=== PATIENT | female | born 1930 | race Caucasian/White ===

== ENCOUNTER 2017-05-15 18:44 | Emergency (ER) | payer MEDICARE, OTHER ==
--- NOTE | 2017-05-15 19:48 | RAD ---
THREE VIEWS LEFT SHOULDER 05/15/17 HISTORY: Left shoulder contusion. FINDINGS: There is a nondisplaced fracture involving the distal left clavicle. There are fractures involving th e lateral left upper ribs of uncertain age but may be more recent in origin. No additional fracture i s seen. There is no dislocation. Diffuse osteopenia is present. IMPRESSION: 1. Nondisplaced fracture distal one third left clavicle. 2. Lateral left upper rib fractures of indeterminate age but may be more recent in origin. These fractures appear to involve the lateral left second, third, and fourth ribs. 3. Osteopenia. POS: [facility]
[2017-05-15] MEDS ORDERED: Acetaminophen 500 MG TAB ONE (20:34)
== END 2017-05-15 20:40 | disposition home or self-care (01) ==
LOC: MADERS 18:44
DX: S42.035A Nondisplaced fracture of lateral end of left clavicle, initial encounter for closed fracture (principal); S22.42XA Multiple fractures of ribs, left side, initial encounter for closed fracture; I10 Essential (primary) hypertension; W17.89XA Other fall from one level to another, initial encounter

== ENCOUNTER 2020-04-16 11:15 | Inpatient (IN) | payer MEDICARE, OTHER ==
[2020-04-16] MEDS ORDERED: Ondansetron ODT 4 MG TAB PO PRN (12:23)
[2020-04-16] MEDS ORDERED: Acetaminophen 325 MG TAB PO PRN (12:23)
[2020-04-16] MEDS ORDERED: Senokot S 8.6-50 MG TAB PO PRN (12:23)
[2020-04-16 12:52] VITALS: BMI 19.1
[2020-04-16 12:59] LABS: #Basophils 0.1 thou/uL (0.0-0.2); #Lymphocytes 0.9 thou/uL (1.20-3.40); #Monocytes 0.8 thou/uL (0.11-0.59); #Neutrophils 9.7 thou/uL (1.40-6.50); %Basophils 0.5 % (0.0-1.0); %Lymphocytes 7.4 % (21.0-51.0); %Monocytes 7.2 % (0.0-10.0); %Neutrophils 84.8 % (42.0-75.0); Hemoglobin 14.3 g/dL (12.0-16.0); Mean Corpuscular HGB CONC 32.7 g/dL (32.0-36.0); Mean Corpuscular Hemoglobin 28.7 pg (27.0-31.0); Mean Corpuscular Volume 87.9 fL (78.0-98.0); Mean Platelet Volume 8.5 fL (7.4-10.4); Platelet Count 184 thou/uL (130-400); Red Blood Cell (RBC) Count 4.97 mill/uL (4.20-5.40); White Blood Cell (WBC) Count 11.4 thou/uL (4.8-10.8)
[2020-04-16 13:16] LABS: ALT (SGPT) 14 U/L (8-55); AST (SGOT) 39 U/L (5-34); Alkaline Phosphatase 109 U/L (40-110); Anion Gap 22 mmol/L (10-20); BUN (Urea Nitrogen) 29 mg/dL (9.8-20.1); Bilirubin, Total 0.8 mg/dL (0.2-1.2); CK (CPK) 1007 U/L (29-168); Calc. Creatinine Clearance 19 mL/min (70-130); Carbon Dioxide 20 mmol/L (23-31); Chloride 101 mmol/L (98-107); Globulin 3.2 g/dL (2.4-3.5); Glucose 115 mg/dL (83-110); Potassium 3.6 mmol/L (3.5-5.1); Protein, Total 7.2 g/dL (6.0-8.3); Sodium 139 mmol/L (136-145)
--- NOTE | 2020-04-16 14:46 | CT ---
CT BRAIN WITHOUT CONTRAST: HISTORY:Altered mental status and fall COMPARISON:None FINDINGS: There are foci of decreased attenuation in the periventricular white matter, consistent with chronic small vessel ischemic disease. No evidence of acute infarct, hemorrhage, midline shift or abnormal extra-axial fluid collections is seen. The ventricular size is appropriate and the basilar cisterns are patent. The bony calvarium is intact. The visualized paranasal sinuses and mastoid air cells are well aerated. IMPRESSION: No CT evidence of acute intracranial process.
--- NOTE | 2020-04-16 14:48 | RAD ---
XR Chest Pa Lat STANDARD HISTORY: Fall, altered mental status COMPARISON: None FINDINGS: The heart size is normal. The right hemidiaphragm is elevated. The lungs are well expanded without focal areas of consolidation, pneumothorax or pleural effusions. There is suggestion of a small hiatal hernia.. IMPRESSION: No radiographic evidence of acute cardiopulmonary process.
[2020-04-16 15:08] LABS: Bilirubin Moderate (Negative); Blood, Urine Moderate (Negative); Clarity Slightly Cloudy (Clear); Glucose, Urine (Dipstick) Negative (Negative); Ketone, Urine 40 mg/dL (Negative); Leukocyte Negative (Negative); Nitrite Negative (Negative); Protein, Urine (Dipstick) 30 mg/dL (Neg-Trace); Urobilinogen 0.2 mg/dL (Less than 2)
[2020-04-16 15:15] LABS: Bacteria/HPF Rare-Few HPF (None Seen); Squamous Epithelial 0-3 HPF (0-3); WBC/HPF 0-3 HPF (0-3)
[2020-04-16] MEDS: Dextrose 5 %-0.45 % NaCl 1,000 ML IV SCH (16:14)
--- NOTE | 2020-04-16 18:10 | RAD ---
Exam: XR Shoulder Rt 3 View STANDARD HISTORY: Right shoulder pain after a fall. COMPARISON: None FINDINGS: There is osteopenia. 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 No obvious fracture is see n, and there is no evidence of a dislocation. Calcified granuloma is seen in the right upper lobe. IMPRESSION: 1. Osteopenia. 2. Right acromioclavicular joint osteoarthritis. 3. No acute osseous abnormality
--- NOTE | 2020-04-16 18:13 | RAD ---
Exam: XR Shoulder Lt 3 View STANDARD HISTORY: Fall prior to admission. Patient plans of left shoulder pain. Patient unable to tolerate a scapular Y view due to the pain. COMPARISON: None FINDINGS: There is a comminuted fracture involving the proximal left humeral diaphysis and neck of the humerus with mild displacement of the distal fracture fragment by 1.5 cm and mild overriding of the fracture fragments. There is diffuse osteopenia. There are nondisplaced fractures involving lateral t hird, fourth, and fifth ribs, but the exact ages are indeterminate and may be more remote in origin. Correlation for point tenderness is recommended. Diffuse osteopenia is present. Scapular Y view is not obtained due to difficulty in positioning which limits evaluation the glenohumeral relationship, but no obvious dislocation is appreciated on the internally and externally rotated views. IMPRESSION: 1. Comminuted fracture proximal left humerus with mild displacement and overriding of fracture fragme nts. 2. Diffuse osteopenia. 3. Lateral left-sided rib fractures of which the exact ages are indeterminate and may be more remote in origin. However, correlation for point tenderness is recommended.
[2020-04-16] MEDS: HYDROcodone/Acetaminophen 5/325 mg Tablet PO PRN (22:24)
[2020-04-16] MEDS: Famotidine 20 MG TAB PO SCH (22:24)
[2020-04-17 02:10] LABS: SARS-CoV-2 MS2 Positive; SARS-CoV-2 N Gene Negative; SARS-CoV-2 S Gene Negative; SARS-CoV-2 by NAA Not Detected (NotDetected); SARS-CoV-2 orf1ab Negative
--- NOTE | 2020-04-17 02:15 | HP ---
ADMITTING AND PRIMARY CARE PHYSICIAN: Sara Neff MD CHIEF COMPLAINT: Altered mental status, fall, and right facial rash. HISTORY OF PRESENT ILLNESS: Patient is an 89-year-old female with a past medical history of hypertension, who has not been to me or any other doctor since 2018. The patient was brought into my office by her niece who states they found her the floor in her home this morning after she did not warehouse order picker their calls. Per niece, the patient was confused when she was found and does not know long she was on the floor. Niece also states the patient lives by herself and the family calls and checks up on her routinely. The patient's POA Ms. Kp Pearson had noted that the patient about a week ago, had a rash appeared on the right side of patient's face and an appointment was made for this as it continued to worsen. The patient had pain and the rash now crusting up. Per niece, the patient's cousin spoke to her this morning and she was fine, but about 2 hours later, they were unable to get hold of the patient, so they visited her home and found on the floor. The patient denies any pain to any of her extremities, but they noted that she has been very weak and niece also states the patient had been falling more often recently. The patient unable to answer majority of my questions. She was very weak and unable to stand up for a full exam. The decision was made to admit the patient to the inpatient service for full examination for altered mental status and also recurrent falls. PAST MEDICAL HISTORY: Hypertension. PAST SURGICAL HISTORY: Hysterectomy. ALLERGIES: NO KNOWN DRUG ALLERGIES. CODE STATUS: The patient is a DNR. FAMILY HISTORY: Patient's father and mother . Both parents had medical history of hypertension. MEDICATIONS: Hydrochlorothiazide 50 mg daily unsure if she is taking med. SOCIAL HISTORY: The patient lives by herself in her home. She was never and never had any children. She has no history of alcohol, tobacco, or illicit drug use. REVIEW OF SYSTEMS: CONSTITUTIONAL: Patient is very weak. Patient denies any fever or chills. HEENT: Denies and ear pain, nasal drainage. Complains of right facial pain and tearing to right eye. CARDIOVASCULAR: Patient denies any chest pain, palpitation, or chest pressure. RESPIRATORY: Patient denies any cough, wheezing, or shortness of breath. GASTROINTESTINAL: Patient denies any constipation, abdominal pain, nausea, or vomiting. GENITOURINARY: Denies any urinary incontinence, frequency, or urgency. MUSCULOSKELETAL: Denies any pain to her joints. SKIN: Patient complains of rash today right side of her face and pain. MUSCULOSKELETAL: Denies any joint pain or lower back pain. NEUROLOGICAL: Patient complains of weakness. She complains of some confusion recently and occasional falling. PHYSICAL EXAMINATION: VITAL SIGNS: Temperature 98.6, pulse 103, respirations 20, O2 saturation on room air 99%, blood pressure 172/96. GENERAL: The patient is alert, awake, and oriented x1, sitting up in bedside chair, in no apparent distress. HEENT: Normocephalic, atraumatic. Extraocular muscles intact. Trachea midline. PERRL, right conjunctiva erythema noted. NECK: Supple. No JVD. No lymphadenopathy. CARDIOVASCULAR: S1 and S2. No murmurs, no gallops. RESPIRATORY: No cough, no wheezing. Good air entry. ABDOMEN: Positive bowel sounds. Nontender, nondistended. SKIN: Patient does have significant erythema to the right side of her face and cheek. The patient does have some dark crusting to the right side of her face. MUSCULOSKELETAL: Patient does have weakness to upper and lower extremities. EXTREMITIES: Does not have any edema or erythema to calf. NEUROLOGICAL: Patient has weakness to upper and lower extremities. The patient is also leaning to her right side in a wheelchair. PSYCHIATRY: The patient does have some confusion, but she is able to be directed. She denies any hallucinations. ASSESSMENT: 1. Fall. 2. Gait instability. 3. Altered mental status. 4. Dehydration. PLAN: The patient is an 89-year-old female, who is currently being admitted to the inpatient service for recurrent fall, altered mental status, dehydration, and gait instability. We will get stat CBC, CMP, chest x-ray, EKG, CT scan of the brain. We will get stat urinalysis and urine cultures. We will consult Physical Therapy, Occupational Therapy to help with the gait, balance, strengthening, and also to help with activities of daily living prior to discharge. We will resume home medications. We will place the patient on DAVIS hose for DVT prophylaxis and Pepcid for GI prophylaxis. We will monitor the patient closely for any dynamic instability or electrolyte abnormalities and adjust accordingly. We will encourage and assist with adequate oral intake. We will start the patient on D5 half NS at 100 mL/h. We will place a bed alarm in the patient's room. We will place patient on fall precautions. ESTIMATED LENGTH OF STAY: 3 to 4 days. DISPOSITION: Possibly back to her home with family to an assisted living facility. Estimated length of time used to prepare this H and P was greater than 45 minutes. Job ID: [id number] [facility]
[2020-04-17] MEDS: Dextrose 5 %-0.45 % NaCl 1,000 ML IV SCH ×3 (02:36→22:04)
[2020-04-17] MEDS ORDERED: Hydrochlorothiazide 25 MG TAB PO SCH (09:00)
[2020-04-17] MEDS: Famotidine 20 MG TAB PO SCH ×2 (09:43→21:33)
[2020-04-17] MEDS: HYDROcodone/Acetaminophen 5/325 mg Tablet PO PRN ×4 (09:43→21:33)
[2020-04-18] MEDS: HYDROcodone/Acetaminophen 5/325 mg Tablet PO PRN ×4 (01:01→20:32)
[2020-04-18] MEDS: Famotidine 20 MG TAB PO SCH ×2 (09:01→20:30)
[2020-04-18] MEDS: Dextrose 5 %-0.45 % NaCl 1,000 ML IV SCH ×2 (09:02→15:02)
[2020-04-18] MEDS ORDERED: Neomycin-Polymyxin-Hc 7.5 ML BOT ONE (20:08)
[2020-04-18] MEDS: Gabapentin 100 MG CAP PO SCH (20:31)
[2020-04-18] MEDS: Neomycin-Polymyxin-Hc 7.5 ML BOT R EYE SCH (20:31)
[2020-04-19] MEDS: HYDROcodone/Acetaminophen 5/325 mg Tablet PO PRN ×4 (00:07→14:03)
[2020-04-19] MEDS: Neomycin-Polymyxin-Hc 7.5 ML BOT R EYE SCH ×4 (00:08→13:13)
[2020-04-19] MEDS: Dextrose 5 %-0.45 % NaCl 1,000 ML IV SCH ×2 (03:23→13:19)
[2020-04-19 08:44] VITALS: TEMP 97.7
[2020-04-19] MEDS ORDERED: Hydrochlorothiazide 25 MG TAB PO SCH (09:00)
[2020-04-19] MEDS: Gabapentin 100 MG CAP PO SCH (09:09)
[2020-04-19] MEDS: Famotidine 20 MG TAB PO SCH (09:09)
[2020-04-19 12:21] VITALS: BP 109/70
[2020-04-19 12:50] LABS: #Basophils 0.1 thou/uL (0.0-0.2); #Eosinphils 0.2 thou/uL (0.0-0.7); #Lymphocytes 1.4 thou/uL (1.20-3.40); #Monocytes 0.7 thou/uL (0.11-0.59); #Neutrophils 5.1 thou/uL (1.40-6.50); %Basophils 0.9 % (0.0-1.0); %Eosinophils 2.3 % (0.0-10.0); %Monocytes 9.8 % (0.0-10.0); %Neutrophils 68.1 % (42.0-75.0); Hemoglobin 10.1 g/dL (12.0-16.0); Mean Corpuscular HGB CONC 33.6 g/dL (32.0-36.0); Mean Corpuscular Hemoglobin 29.6 pg (27.0-31.0); Mean Corpuscular Volume 88.1 fL (78.0-98.0); Mean Platelet Volume 8.3 fL (7.4-10.4); Platelet Count 174 thou/uL (130-400); RBC Distribution Width 12.6 % (11.5-14.5); Red Blood Cell (RBC) Count 3.42 mill/uL (4.20-5.40); White Blood Cell (WBC) Count 7.4 thou/uL (4.8-10.8)
[2020-04-19 13:05] LABS: Anion Gap 12 mmol/L (10-20); BUN (Urea Nitrogen) 9 mg/dL (9.8-20.1); CK (CPK) 241 U/L (29-168); Calc. Creatinine Clearance 31 mL/min (70-130); Calcium 7.6 mg/dL (7.8-10.44); Carbon Dioxide 21 mmol/L (23-31); Chloride 103 mmol/L (98-107); Glucose 119 mg/dL (83-110); Potassium 3.2 mmol/L (3.5-5.1); Sodium 133 mmol/L (136-145)
== END 2020-04-19 15:12 | disposition swing bed (61) | DRG 184 ==
LOC: MADMS 11:15
PROVIDERS: ADMIT Family Medicine; ATTEND Family Medicine
DX: S22.42XA Multiple fractures of ribs, left side, initial encounter for closed fracture (principal); S42.202A Unspecified fracture of upper end of left humerus, initial encounter for closed fracture; M62.82 Rhabdomyolysis; R26.89 Other abnormalities of gait and mobility; R41.82 Altered mental status, unspecified; R29.6 Repeated falls; I10 Essential (primary) hypertension; Z66 Do not resuscitate; E86.0 Dehydration; Z90.710 Acquired absence of both cervix and uterus; Z79.899 Other long term (current) drug therapy; Z20.828 Contact with and (suspected) exposure to other viral communicable diseases; B02.9 Zoster without complications
CPT/HCPCS: 36415; 70450; 71046; 80048; 80053; 81001; 82550; 83735; 84443; 85025; 87635; J7042; U0003

== ENCOUNTER 2020-04-19 15:13 | Inpatient (IN) | payer MEDICARE, OTHER ==
[2020-04-19] MEDS ORDERED: Ondansetron ODT 4 MG TAB PO PRN (16:54)
[2020-04-19] MEDS ORDERED: HYDROcodone/Acetaminophen 5/325 mg Tablet PO PRN ×2 (16:54→16:57)
[2020-04-19] MEDS ORDERED: Acetaminophen 325 MG TAB PO PRN (16:54)
[2020-04-19] MEDS ORDERED: Senokot S 8.6-50 MG TAB PO PRN (16:57)
[2020-04-19] MEDS ORDERED: HYDROcodone/Acetaminophen 7.5/325 mg Tablet PO PRN (17:02)
[2020-04-19] MEDS: Neomycin-Polymyxin-Hc 7.5 ML BOT R EYE SCH ×2 (17:57→20:38)
[2020-04-19] MEDS: Gabapentin 100 MG CAP PO SCH (20:28)
[2020-04-19] MEDS: Famotidine 20 MG TAB PO SCH (20:28)
[2020-04-19] MEDS: HYDROcodone/Acetaminophen 5/325 mg Tablet PO PRN (20:29)
[2020-04-19] MEDS ORDERED: Famotidine 20 MG TAB PO SCH (21:00)
[2020-04-20] MEDS: Neomycin-Polymyxin-Hc 7.5 ML BOT R EYE SCH ×6 (02:00→21:00)
[2020-04-20] MEDS ORDERED: FLU VACC QS2020-21(65YR UP)/PF 240 MCG/0.7 ML SYRINGE IM ONE (09:00)
[2020-04-20] MEDS: Acetaminophen 325 MG TAB PO PRN (09:05)
[2020-04-20] MEDS: Gabapentin 100 MG CAP PO SCH ×2 (09:06→20:32)
[2020-04-20] MEDS: Hydrochlorothiazide 25 MG TAB PO SCH (09:06)
[2020-04-20] MEDS: Famotidine 20 MG TAB PO SCH ×2 (09:07→20:32)
[2020-04-20] MEDS: HYDROcodone/Acetaminophen 5/325 mg Tablet PO PRN ×2 (14:25→20:33)
[2020-04-21] MEDS: Neomycin-Polymyxin-Hc 7.5 ML BOT R EYE SCH ×6 (00:03→20:03)
[2020-04-21] MEDS: Acetaminophen 325 MG TAB PO PRN (02:20)
[2020-04-21] MEDS: Famotidine 20 MG TAB PO SCH ×2 (09:10→20:02)
[2020-04-21] MEDS: Gabapentin 100 MG CAP PO SCH ×2 (09:10→20:02)
[2020-04-21] MEDS: Hydrochlorothiazide 25 MG TAB PO SCH (09:12)
[2020-04-21] MEDS: HYDROcodone/Acetaminophen 5/325 mg Tablet PO PRN ×2 (09:12→20:03)
[2020-04-22] MEDS: Neomycin-Polymyxin-Hc 7.5 ML BOT R EYE SCH ×6 (01:15→20:16)
[2020-04-22] MEDS: Acetaminophen 325 MG TAB PO PRN (01:38)
[2020-04-22] MEDS: Hydrochlorothiazide 25 MG TAB PO SCH (08:01)
[2020-04-22] MEDS: Famotidine 20 MG TAB PO SCH ×2 (08:01→20:15)
[2020-04-22] MEDS: Gabapentin 100 MG CAP PO SCH ×2 (08:01→20:15)
[2020-04-22] MEDS: HYDROcodone/Acetaminophen 5/325 mg Tablet PO PRN ×2 (10:17→16:34)
[2020-04-22] MEDS ORDERED: Lidocaine 4% Cream 5 GM TUBE w/ Tegaderm ONE (19:38)
[2020-04-22] MEDS: Lidocaine 4% Cream 5 GM TUBE w/ Tegaderm TOP SCH (20:16)
[2020-04-23] MEDS: Neomycin-Polymyxin-Hc 7.5 ML BOT R EYE SCH ×6 (00:06→20:14)
[2020-04-23] MEDS: HYDROcodone/Acetaminophen 5/325 mg Tablet PO PRN ×2 (02:06→18:00)
[2020-04-23] MEDS: Hydrochlorothiazide 25 MG TAB PO SCH (08:39)
[2020-04-23] MEDS: Gabapentin 100 MG CAP PO SCH ×2 (08:39→20:12)
[2020-04-23] MEDS: Famotidine 20 MG TAB PO SCH ×2 (08:39→20:11)
[2020-04-23] MEDS: Lidocaine 4% Cream 5 GM TUBE w/ Tegaderm TOP SCH ×2 (08:40→20:12)
[2020-04-24] MEDS: HYDROcodone/Acetaminophen 5/325 mg Tablet PO PRN ×3 (00:16→20:14)
[2020-04-24] MEDS: Neomycin-Polymyxin-Hc 7.5 ML BOT R EYE SCH ×6 (00:16→20:15)
[2020-04-24] MEDS: Hydrochlorothiazide 25 MG TAB PO SCH (08:48)
[2020-04-24] MEDS: Famotidine 20 MG TAB PO SCH ×2 (08:48→20:13)
[2020-04-24] MEDS: Gabapentin 100 MG CAP PO SCH ×2 (08:49→20:13)
[2020-04-24] MEDS: Lidocaine 4% Cream 5 GM TUBE w/ Tegaderm TOP SCH ×2 (08:50→20:20)
[2020-04-24] MEDS: Acetaminophen 325 MG TAB PO PRN (17:06)
[2020-04-24] MEDS: Donepezil HCl 10 MG TAB PO SCH (20:13)
[2020-04-25] MEDS: Neomycin-Polymyxin-Hc 7.5 ML BOT R EYE SCH ×7 (01:10→20:14)
[2020-04-25] MEDS: Acetaminophen 325 MG TAB PO PRN (04:00)
[2020-04-25] MEDS: Hydrochlorothiazide 25 MG TAB PO SCH (09:05)
[2020-04-25] MEDS: HYDROcodone/Acetaminophen 5/325 mg Tablet PO PRN ×3 (09:05→20:12)
[2020-04-25] MEDS: Famotidine 20 MG TAB PO SCH ×2 (09:05→20:11)
[2020-04-25] MEDS: Gabapentin 100 MG CAP PO SCH ×2 (09:06→20:13)
[2020-04-25] MEDS: Lidocaine 4% Cream 5 GM TUBE w/ Tegaderm TOP SCH ×2 (09:07→20:14)
[2020-04-25] MEDS: Donepezil HCl 10 MG TAB PO SCH (20:11)
[2020-04-26] MEDS: Neomycin-Polymyxin-Hc 7.5 ML BOT R EYE SCH ×6 (00:11→20:15)
[2020-04-26] MEDS: Acetaminophen 325 MG TAB PO PRN ×2 (00:25→05:20)
[2020-04-26] MEDS: Famotidine 20 MG TAB PO SCH (08:08)
[2020-04-26] MEDS: Gabapentin 100 MG CAP PO SCH ×2 (08:08→20:14)
[2020-04-26] MEDS: Hydrochlorothiazide 25 MG TAB PO SCH (08:08)
[2020-04-26] MEDS: Lidocaine 4% Cream 5 GM TUBE w/ Tegaderm TOP SCH ×2 (08:11→20:15)
[2020-04-26] MEDS: HYDROcodone/Acetaminophen 5/325 mg Tablet PO PRN ×3 (08:15→21:50)
[2020-04-26] MEDS: Ondansetron ODT 4 MG TAB PO PRN (09:27)
[2020-04-26] MEDS: Donepezil HCl 10 MG TAB PO SCH (20:14)
[2020-04-27] MEDS: Neomycin-Polymyxin-Hc 7.5 ML BOT R EYE SCH ×6 (00:17→20:59)
[2020-04-27] MEDS: HYDROcodone/Acetaminophen 5/325 mg Tablet PO PRN ×2 (06:11→12:21)
[2020-04-27] MEDS: Gabapentin 100 MG CAP PO SCH ×2 (08:02→20:58)
[2020-04-27] MEDS: Famotidine 20 MG TAB PO SCH (08:02)
[2020-04-27] MEDS: Acetaminophen 325 MG TAB PO PRN (08:02)
[2020-04-27] MEDS: Hydrochlorothiazide 25 MG TAB PO SCH (08:02)
[2020-04-27] MEDS: Lidocaine 4% Cream 5 GM TUBE w/ Tegaderm TOP SCH ×2 (08:03→20:59)
--- NOTE | 2020-04-27 19:05 | PRG ---
DATE OF SERVICE: 04/27/2020 SUBJECTIVE: The patient was seen and examined at the bedside. She is in no distress. No adverse events overnight per nursing. She denies any chest pain or shortness of breath. She does report pain of her left upper extremity that is controlled with pain medications. OBJECTIVE: VITAL SIGNS: Temperature 97.6, pulse 80, respirations 16, oxygen 97% on room air, blood pressure 132/69. GENERAL: The patient is alert and oriented x3. She is in no distress. HEENT: Normocephalic, atraumatic. Extraocular muscles intact. Slight conjunctival injection of the right eye. No tearing noted. Moist mucous membranes. SKIN: Erythematous crusting patch on right cheek. CARDIOVASCULAR: Regular rate and rhythm with no murmurs, rubs, or gallops. LUNGS: Clear to auscultation bilaterally. ABDOMEN: Soft, nontender to palpation. EXTREMITIES: Normal bulk and tone. MUSCULOSKELETAL: Left upper arm in a sling. ASSESSMENT: 1. Gait instability. 2. Recurrent falls. 3. Dementia. 4. Herpes zoster infection, healing. 5. Comminuted left proximal humerus fracture. PLAN: 1. We will continue physical therapy and occupational therapy. The patient is progressing. However, she still does require quite a bit of assistance, ill likely need placement which is still in discussion with the patient. Regarding humeral fracture, continue pain management. Continue to mobilize with sling, deemed nonoperable per orthopedic surgeon. We will potentially consider outpatient followup for review to assess for healing. 2. Regarding history of dementia, the patient is doing well. No behavioral disturbance. Continue Aricept. 3. DVT prophylaxis. Continue DAVIS baron. Job ID: [id number]
[2020-04-27] MEDS: Donepezil HCl 10 MG TAB PO SCH (20:59)
[2020-04-28] MEDS: HYDROcodone/Acetaminophen 5/325 mg Tablet PO PRN ×2 (01:40→20:48)
[2020-04-28] MEDS: Neomycin-Polymyxin-Hc 7.5 ML BOT R EYE SCH ×6 (01:44→20:50)
[2020-04-28] MEDS: Ondansetron ODT 4 MG TAB PO PRN (08:09)
[2020-04-28] MEDS: Lidocaine 4% Cream 5 GM TUBE w/ Tegaderm TOP SCH ×2 (08:11→20:50)
[2020-04-28] MEDS: Gabapentin 100 MG CAP PO SCH ×2 (08:12→20:46)
[2020-04-28] MEDS: Famotidine 20 MG TAB PO SCH (08:13)
[2020-04-28] MEDS: Hydrochlorothiazide 25 MG TAB PO SCH (08:13)
[2020-04-28] MEDS: Senokot S 8.6-50 MG TAB PO PRN ×2 (11:57→22:03)
[2020-04-28] MEDS: Acetaminophen 325 MG TAB PO PRN (16:41)
[2020-04-28] MEDS: Donepezil HCl 10 MG TAB PO SCH (20:46)
[2020-04-29] MEDS: Acetaminophen 325 MG TAB PO PRN (01:24)
[2020-04-29] MEDS: Gabapentin 100 MG CAP PO SCH ×2 (09:32→22:31)
[2020-04-29] MEDS: Famotidine 20 MG TAB PO SCH (09:33)
[2020-04-29] MEDS: Hydrochlorothiazide 25 MG TAB PO SCH (09:33)
[2020-04-29] MEDS: HYDROcodone/Acetaminophen 5/325 mg Tablet PO PRN ×2 (09:33→14:49)
[2020-04-29] MEDS: Lidocaine 4% Cream 5 GM TUBE w/ Tegaderm TOP SCH ×2 (09:34→11:50)
[2020-04-29 10:56] VITALS: BMI 21.0
[2020-04-29] MEDS: Donepezil HCl 10 MG TAB PO SCH (22:31)
[2020-04-30] MEDS ORDERED: Lidocaine 4% Cream 5 GM TUBE w/ Tegaderm ONE ×2 (00:38→00:39)
[2020-04-30] MEDS: Senokot S 8.6-50 MG TAB PO PRN (03:06)
[2020-04-30] MEDS: Hydrochlorothiazide 25 MG TAB PO SCH (09:00)
[2020-04-30] MEDS: Famotidine 20 MG TAB PO SCH (09:00)
[2020-04-30] MEDS: Gabapentin 100 MG CAP PO SCH ×2 (09:00→21:50)
[2020-04-30] MEDS: Lidocaine 4% Cream 5 GM TUBE w/ Tegaderm TOP SCH ×2 (09:01→21:51)
[2020-04-30] MEDS: Acetaminophen 325 MG TAB PO PRN (13:53)
[2020-04-30] MEDS: HYDROcodone/Acetaminophen 5/325 mg Tablet PO PRN (21:50)
[2020-04-30] MEDS: Donepezil HCl 10 MG TAB PO SCH (21:51)
[2020-05-01] MEDS: HYDROcodone/Acetaminophen 5/325 mg Tablet PO PRN ×3 (05:35→22:16)
[2020-05-01] MEDS: Polyethylene Glycol 3350 17 GM Packet PO SCH (09:29)
[2020-05-01] MEDS: Famotidine 20 MG TAB PO SCH (09:30)
[2020-05-01] MEDS: Hydrochlorothiazide 25 MG TAB PO SCH (09:30)
[2020-05-01] MEDS: Gabapentin 100 MG CAP PO SCH ×2 (09:30→21:18)
[2020-05-01] MEDS: Lidocaine 4% Cream 5 GM TUBE w/ Tegaderm TOP SCH ×2 (09:31→21:20)
[2020-05-01] MEDS: Acetaminophen 325 MG TAB PO PRN (09:36)
[2020-05-01] MEDS: Senokot S 8.6-50 MG TAB PO PRN (21:18)
[2020-05-01] MEDS: Donepezil HCl 10 MG TAB PO SCH (21:19)
[2020-05-02] MEDS: HYDROcodone/Acetaminophen 5/325 mg Tablet PO PRN ×3 (06:24→21:46)
[2020-05-02] MEDS: Polyethylene Glycol 3350 17 GM Packet PO SCH (08:48)
[2020-05-02] MEDS: Famotidine 20 MG TAB PO SCH (08:48)
[2020-05-02] MEDS: Gabapentin 100 MG CAP PO SCH ×2 (08:48→21:42)
[2020-05-02] MEDS: Hydrochlorothiazide 25 MG TAB PO SCH (08:48)
[2020-05-02] MEDS: Acetaminophen 325 MG TAB PO PRN (08:49)
[2020-05-02] MEDS: Lidocaine 4% Cream 5 GM TUBE w/ Tegaderm TOP SCH ×2 (08:49→21:43)
[2020-05-02] MEDS: Senokot S 8.6-50 MG TAB PO PRN (08:51)
[2020-05-02] MEDS: Ondansetron ODT 4 MG TAB PO PRN (13:59)
[2020-05-02] MEDS: Donepezil HCl 10 MG TAB PO SCH (21:42)
[2020-05-03] MEDS: HYDROcodone/Acetaminophen 5/325 mg Tablet PO PRN ×2 (05:25→16:20)
[2020-05-03] MEDS: Ondansetron ODT 4 MG TAB PO PRN (08:28)
[2020-05-03] MEDS: Famotidine 20 MG TAB PO SCH (08:56)
[2020-05-03] MEDS: Hydrochlorothiazide 25 MG TAB PO SCH (08:56)
[2020-05-03] MEDS: Acetaminophen 325 MG TAB PO PRN ×2 (08:56→20:49)
[2020-05-03] MEDS: Gabapentin 100 MG CAP PO SCH ×2 (08:56→20:49)
[2020-05-03] MEDS: Lidocaine 4% Cream 5 GM TUBE w/ Tegaderm TOP SCH ×2 (08:57→20:51)
[2020-05-03] MEDS: Polyethylene Glycol 3350 17 GM Packet PO SCH (08:57)
[2020-05-03] MEDS: Senokot S 8.6-50 MG TAB PO PRN (20:49)
[2020-05-03] MEDS: Donepezil HCl 10 MG TAB PO SCH (20:49)
[2020-05-04] MEDS: Polyethylene Glycol 3350 17 GM Packet PO SCH (09:03)
[2020-05-04] MEDS: Hydrochlorothiazide 25 MG TAB PO SCH (09:03)
[2020-05-04] MEDS: Famotidine 20 MG TAB PO SCH (09:03)
[2020-05-04] MEDS: HYDROcodone/Acetaminophen 5/325 mg Tablet PO PRN ×2 (09:03→20:42)
[2020-05-04] MEDS: Gabapentin 100 MG CAP PO SCH ×2 (09:04→20:41)
[2020-05-04] MEDS: Lidocaine 4% Cream 5 GM TUBE w/ Tegaderm TOP SCH ×2 (09:05→20:41)
[2020-05-04] MEDS: Acetaminophen 325 MG TAB PO PRN (12:46)
[2020-05-04] MEDS: Donepezil HCl 10 MG TAB PO SCH (20:41)
[2020-05-05] MEDS: Polyethylene Glycol 3350 17 GM Packet PO SCH (09:17)
[2020-05-05] MEDS: HYDROcodone/Acetaminophen 5/325 mg Tablet PO PRN ×2 (09:18→21:09)
[2020-05-05] MEDS: Gabapentin 100 MG CAP PO SCH ×2 (09:19→21:08)
[2020-05-05] MEDS: Lidocaine 4% Cream 5 GM TUBE w/ Tegaderm TOP SCH ×2 (09:19→21:10)
[2020-05-05] MEDS: Hydrochlorothiazide 25 MG TAB PO SCH (09:19)
[2020-05-05] MEDS: Famotidine 20 MG TAB PO SCH (09:19)
[2020-05-05] MEDS: Donepezil HCl 10 MG TAB PO SCH (21:09)
[2020-05-06] MEDS: Polyethylene Glycol 3350 17 GM Packet PO SCH (08:52)
[2020-05-06] MEDS: Famotidine 20 MG TAB PO SCH (08:53)
[2020-05-06] MEDS: HYDROcodone/Acetaminophen 5/325 mg Tablet PO PRN (08:53)
[2020-05-06] MEDS: Hydrochlorothiazide 25 MG TAB PO SCH (08:53)
[2020-05-06] MEDS: Gabapentin 100 MG CAP PO SCH (08:55)
[2020-05-06] MEDS: Lidocaine 4% Cream 5 GM TUBE w/ Tegaderm TOP SCH (08:56)
[2020-05-06 13:21] VITALS: BP 121/71; TEMP 98.3
--- NOTE | 2020-05-06 23:09 | DIS ---
DATE OF ADMISSION: 04/19/2020 DATE OF DISCHARGE: 05/06/2020 DISCHARGING PHYSICIAN: Sara Neff MD DISCHARGE DISPOSITION: To [facility]. DISCHARGE DIAGNOSES: 1. Recurrent falls. 2. Gait instability. 3. Shingles, resolved. 4. Comminuted head fracture to the proximal left humerus with mild displacement. 5. Hypertension. 6. Acute depression. DISCHARGE MEDICATIONS: 1. Tylenol 650 q.4 p.r.n. 2. Castalia 5/325 one tab q.6 hours. 3. Donepezil 10 mg at bedtime. 4. Pepcid 20 mg daily. 5. Gabapentin 100 mg b.i.d. 6. Hydrochlorothiazide 25 mg daily. 7. MiraLAX 1 pack daily. 8. Zofran 4 mg q.6 p.r.n. 9. Senokot 2 tabs p.o. b.i.d. p.r.n. DISCHARGE INSTRUCTIONS: 1. Patient to follow up with primary care physician in 1 week. 2. Patient to start physical therapy, occupational therapy in [facility]. 3. Patient to follow up with orthopedic surgeon, Dr. Cadet in the next 1 to 2 weeks. 4. Patient to ambulate with a cane at all times. CODE STATUS: The patient is a DNR. BRIEF HOSPITAL COURSE: Ms. Childs is an 89-year-old unfortunate female, who presented to my office on the 16 of April due to family finding on the floor in her home. They are unsure how long she had been on the floor for. The patient upon presentation to my office was very confused, was very lethargic, could not stand up. Family also noted the patient had a rash to the right side of her face that has been present for the past 3 to 5 days. They stated this started as a blister, but has now spread and is very painful and also causing eye pain. Family had made an appointment to see me in my office on the 16 of April and when they went to check up on that appointment, they found down the floor and she was unable to tell them how long she had been there. Upon evaluation in my office, the patient was very confused. She was weak. She denied any chest pain. She denied any shortness of breath or palpitation and the decision was made to admit the patient to the hospital for full evaluation. Upon evaluation, CT head was negative, showed no acute intracranial process. Chest x-ray was negative. No cardiopulmonary process. The patient had a white count of 11.4, hemoglobin 14.3, hematocrit 43.7. BMP showed a BUN of 29, creatinine of 1.43, GFR of 35, and CK was noted to be 1007. UA showed moderate blood and bilirubin. COVID-19 test was negative. The patient was noted to have acute rhabdomyolysis due to fall and stay on the floor. She was started on IV fluids and there she was monitored closely. On day of admission, April 16, with family in room, nursing staff had noted family did not to allow the patient to get up. Unfortunately, great niece in the patient's room allowed her to go to the bathroom and upon coming back from the bathroom, the patient fell on her left side and had significant shoulder pain, swelling, and displacement. A stat x-ray of her shoulders was done and this showed a comminuted fracture of proximal left humerus with mild displacement and overriding of fracture fragment. Orthopedic surgeon plant protection supervisor, Dr. Cadet was consulted immediately and he evaluated the imaging studies and noted due to patient's current altered mental status and age that she was not a surgical candidate. He recommended an immobilizer and follow up upon discharge. The patient was started on Castalia 5/325 p.r.n. pain. and ice compresses were applied to the shoulder. Patient continued to progress and after 3 days of the IV antibiotics, she was eating better and back to her mental baseline. The decision was made for patient to continue physical therapy, so she was transferred to skilled rehabilitation for continuation of physical therapy prior to discharge. Unfortunately, patient lives by herself and due to her current situation, it would not be feasible to discharge her back to home by herself. Family stated they could not take care of her at home, so social studies department chair was consulted who assisted in helping patient with placement. Patient was also noted upon admission to have shingles to the right side of her face and her eye and she was started on gabapentin 100 t.i.d., which significantly helps with the pain. The patient was also started on lidocaine topical and that helped and also some eyedrops, which improved. The patient's rash significantly improved. The patient progressed during hospitalization with physical therapy. She was able to ambulate about 60 feet with a cane. The decision was made to discharge the patient to [facility] and the patient to continue rehabilitation there. The patient was discharged to nursing facility in a stable condition. DISCHARGE VITAL SIGNS: Temperature 98.3, pulse 71, respirations 18, O2 saturation 97% on room air, blood pressure 121/71. Estimated length of time used to prepare and evaluate patient for this discharge summary was greater than 45 minutes. Job ID: [id number]
== END 2020-05-06 15:51 | DRG 948 ==
LOC: MADMS 15:13
PROVIDERS: ADMIT Family Medicine; ATTEND Family Medicine
DX: R53.81 Other malaise (principal); R26.89 Other abnormalities of gait and mobility; F03.90 Unspecified dementia, unspecified severity, without behavioral disturbance, psychotic disturbance, mood disturbance, and anxiety; R29.6 Repeated falls; B02.9 Zoster without complications; F32.9 Major depressive disorder, single episode, unspecified; E86.0 Dehydration; Z66 Do not resuscitate; I10 Essential (primary) hypertension; S72.002D Fracture of unspecified part of neck of left femur, subsequent encounter for closed fracture with routine healing; Z90.710 Acquired absence of both cervix and uterus; W18.30XD Fall on same level, unspecified, subsequent encounter; Z82.49 Family history of ischemic heart disease and other diseases of the circulatory system
CPT/HCPCS: Q0162